=== PATIENT | female | born 1945 | race Caucasian/White ===

== ENCOUNTER → 2017-10-21 14:51 | Outpatient (CLI) | payer MEDICARE, SELFPAY ==
--- NOTE | 2017-10-21 14:51 | DI.REPORT_ITS ---
SYMPTOMS/DIAGNOSIS: RIGHT SHOULDER PAIN, BONY ABNORMALITY ANTERIORLY, M25.511 RIGHT SHOULDER: Multiple views. The glenohumeral joint appears well maintained. There are mild hypertrophic changes seen at the acromioclavicular joint. The clavicle appears mildly superiorly elevated relative to the acromion. There are degenerative changes seen at the greater tuberosity. The soft tissues are unremarkable. IMPRESSION: 1. Mild degenerative changes of the right shoulder. 2. Mild elevation of the clavicle relative to the acromion. This appears grossly unchanged when compared to examination from 10/09/12.
[2017-10-24 10:38] LABS: Lyme Ab w Rflx to Lyme Confirm Negative
[2017-10-26 00:07] LABS: Anaplasma phagocytophilum Negative (Negative); B. miyamotoi PCR Negative (Negative); Babesia divergens/MO-1 Negative (Negative); Babesia duncani Negative (Negative); Babesia microti Negative (Negative); Ehrlichia chaffeensis Negative (Negative); Ehrlichia ewingii/canis Negative (Negative); Ehrlichia muris eauclairensis Negative (Negative)
== END ==
PROVIDERS: PCP Nurse Practitioner Family; Visit Provider Nurse Practitioner Family
DX: M25.511 Pain in right shoulder (principal); M79.2 Neuralgia and neuritis, unspecified; M19.011 Primary osteoarthritis, right shoulder
CPT/HCPCS: 73030; 36415; 86618; 87798

== ENCOUNTER 2018-09-27 00:17 | Outpatient (CLI) | payer MEDICARE, SELFPAY | END 2018-09-27 00:37 | PROVIDERS: PCP Nurse Practitioner Family; Visit Provider Nurse Practitioner Family | DX: R69 Illness, unspecified (principal) ==

== ENCOUNTER 2018-10-03 00:38 | Outpatient (CLI) | payer MEDICARE, SELFPAY ==
--- NOTE | 2018-10-03 13:55 | DI.US_ITS ---
SYMPTOMS/DIAGNOSIS: RIGHT CAROTID BRUIT, R09.89, KNOWN THYROID NODULE CAROTID ULTRASOUND: Routine examination was performed. On the right, there is no evidence of hemodynamically significant velocity elevations. Minimal plaque is seen in the right carotid bulb. The right vertebral artery is antegrade. On the left, there is mild calcific plaque seen in the carotid bulb. No hemodynamically significant velocity elevations are present. The left vertebral artery is antegrade. IMPRESSION: No evidence of hemodynamically significant cervical carotid artery stenosis.
--- NOTE | 2018-10-03 13:55 | DI.MAMMO_ITS ---
SYMPTOM/DIAGNOSIS: SCREENING Z12.31 BILATERAL SCREENING MAMMOGRAMS: Mammograms were interpreted according to the usual protocol including computer analysis with CAD system, tomosynthesis and C view imaging. Comparison is made with exams from 2010 through 2012 from [facility] and 2014 through 2016 from [facility] in [place] The breasts are composed of scattered fibroglandular densities, breast density category B. No suspicious masses or suspicious microcalcifications are seen. There has been no significant change. IMPRESSION: Category 1, negative mammogram. Yearly screening mammography is recommended. Breast density category B. SA ASSESSMENT OF FINDINGS: Negative. Category 1. Patient will receive a letter notifying them of these results. BI-RADS category B. There are scattered areas of fibroglandular density.
--- NOTE | 2018-10-03 15:20 | DI.RAD_ITS ---
SYMPTOMS/DIAGNOSIS: POSTMENOPAUSAL, Z78.0 DEXA SCAN: Routine examination was performed. No priors for comparison. Evaluation of the lateral spine shows no compression deformities. Postsurgical changes are seen at L4-L5. Evaluation of the lumbar spine shows a total T score of -1.8 and a Z score of 0.3. This is consistent with osteopenia and an increased fracture risk. Evaluation of the left hip shows a total T score of -1.7 and a Z score of -0.1. This is consistent with osteopenia and an increased fracture risk. There is no evidence of osteoporosis. IMPRESSION: Osteopenia in the lumbar spine and left hip.
== END 2018-10-03 00:58 ==
PROVIDERS: PCP Nurse Practitioner Family; Visit Provider Nurse Practitioner Family
DX: Z12.31 Encounter for screening mammogram for malignant neoplasm of breast (principal); Z78.0 Asymptomatic menopausal state; R09.89 Other specified symptoms and signs involving the circulatory and respiratory systems
CPT/HCPCS: 77063; 77067; 77080; 93880

== ENCOUNTER 2018-11-02 08:44 | Outpatient (CLI) | payer MEDICARE, SELFPAY ==
[2018-11-02 10:58] LABS: Hemoglobin A1C 5.2 % (4.5-6.2)
[2018-11-02 12:06] LABS: ALT 19 U/L (12-78); AST 18 U/L (15-37); Alkaline Phosphatase 56 U/L (46-116); BUN 22 mg/dL (7-18); Bilirubin, Total 0.5 mg/dL (0.2-1.0); CO2 26.9 mmol/L (21.0-32.0); CREATININE 0.81 mg/dL (0.55-1.02); Calcium 8.8 mg/dL (8.5-10.1); Calculated LDL 149 mg/dL; Cholesterol 242 mg/dL (50-200); Glucose 93 mg/dL (70-100); HDL Cholesterol 60 mg/dL (40-60); TSH 0.37 uIU/mL (0.36-3.74); Triglyceride 168 mg/dL (30-150)
[2018-11-02 12:14] LABS: Anion Gap 9.1 mmol/L (3-11); Chloride 105 mmol/L (98-107); Potassium 4.2 mmol/L (3.5-5.1); Sodium 141 mmol/L (136-145)
[2018-11-02 12:24] LABS: Vitamin D 25 Total 36.1 ng/ml (30-100)
[2018-11-02 20:55] LABS: T3,Free 3.2 pg/ml (2.8-5.3)
== END 2018-11-02 09:04 ==
PROVIDERS: PCP Nurse Practitioner Family; Visit Provider Nurse Practitioner Family
DX: E04.2 Nontoxic multinodular goiter (principal); E78.5 Hyperlipidemia, unspecified; M85.80 Other specified disorders of bone density and structure, unspecified site
CPT/HCPCS: 36415; 80053; 80061; 82306; 83721; 83036; 84439; 84443; 84481

== ENCOUNTER 2019-11-12 21:13 | Outpatient (REF) | payer MEDICARE, SELFPAY | END 2019-11-12 21:33 | LOC: LBN 21:13 | PROVIDERS: PCP Nurse Practitioner Family; Visit Provider Nurse Practitioner Family | DX: N39.0 Urinary tract infection, site not specified (principal) | CPT/HCPCS: 87077; 87086; 87186 ==

== ENCOUNTER 2020-10-13 14:56 | Outpatient (REF) | payer MEDICARE, SELFPAY | END 2020-10-13 14:57 | disposition home or self-care (01) | LOC: LBN 14:56 | PROVIDERS: PCP Nurse Practitioner Family; Visit Provider Nurse Practitioner Family | DX: N76.0 Acute vaginitis (principal) | CPT/HCPCS: 87480; 87510; 87660 ==

== ENCOUNTER 2020-12-16 15:01 | Outpatient (REF) | payer MEDICARE, SELFPAY ==
[2020-12-16 12:51] LABS: Bilirubin Negative (Negative); Blood Large (Negative); Clarity Cloudy (Clear); Glucose Negative (Negative); Ketones Trace mg/dL (Negative); Leukocyte Esterase Moderate (Negative); Nitrite Negative (Negative); Specific Gravity >= 1.030 (1.005-1.025); Urobilinogen 0.2 EU/dL (Up TO 0.2); pH 5.5 (5-8)
[2020-12-16 12:58] LABS: Epithelial Cells Rare HPF (Negative); RBC 20-50 HPF (0-2); WBC 20-50 HPF (0-5)
[2020-12-16 12:59] LABS: Bacteria Few HPF (Negative); C & S Indicated? Yes; Casts Negative LPF (Negative); Crystals Negative HPF (Negative); Mucus Negative (Negative)
== END 2020-12-16 15:02 | disposition home or self-care (01) ==
LOC: LBN 15:01
PROVIDERS: PCP Nurse Practitioner Family; Visit Provider Physician Assistant
DX: R31.9 Hematuria, unspecified (principal); R39.15 Urgency of urination; R35.0 Frequency of micturition
CPT/HCPCS: 87077; 81003; 81015; 87086; 87186

== ENCOUNTER 2020-12-17 19:44 | Outpatient (REF) | payer MEDICARE, SELFPAY ==
[2020-12-19 12:10] LABS: COVID-19 RT-PCR UVMMC Result Negative (Negative)
== END 2020-12-17 19:45 | disposition home or self-care (01) ==
LOC: LBN 19:44
PROVIDERS: PCP Nurse Practitioner Family; Visit Provider Nurse Practitioner Family
DX: Z20.822 Contact with and (suspected) exposure to COVID-19 (principal)
CPT/HCPCS: U0003; U0005

== ENCOUNTER → 2021-10-13 13:51 | Outpatient (BNVA) | payer MEDICARE, SELFPAY | PROVIDERS: PCP Nurse Practitioner Family; Referring Provider Nurse Practitioner Family; Visit Provider Nurse Practitioner Adult Health | DX: M79.641 Pain in right hand (principal); M79.642 Pain in left hand | CPT/HCPCS: 95909; 99204 ==

== ENCOUNTER → 2021-11-13 09:26 | Outpatient (BNVA) | payer MEDICARE, SELFPAY | PROVIDERS: PCP Nurse Practitioner Family; Referring Provider Nurse Practitioner Family; Visit Provider Student in an Organized Health Care Education/Training Program | DX: M79.641 Pain in right hand (principal); M79.642 Pain in left hand; M18.0 Bilateral primary osteoarthritis of first carpometacarpal joints | CPT/HCPCS: 99213 ==

== ENCOUNTER 2022-09-20 15:37 | Outpatient (CLI) | payer MEDICARE, SELFPAY ==
--- NOTE | 2022-09-20 15:10 | DI.RAD_ITS ---
Exam(s) XR HIP PELVIS ADULT BL EXAM: XR HIP PELVIS ADULT BL CLINICAL HISTORY: BILAT HIP OA, M16.11, M16.12. TECHNIQUE: 2D digital imaging was performed. COMPARISON: No exams were available for comparison FINDINGS: 3 views No evidence of pelvic nor hip fracture. Fusion device noted in the lower lumbar spine. There are significant degenerative changes in both hips. Marginal osteophytes. Mild joint space tana rowing bilaterally. No significant osseous lesions. There is a calcification measuring 1.0 x 0.8 cm it adjacent to the right femoral neck medial aspect. SI joints unremarkable. IMPRESSION: Degenerative hip joint findings as above. DATA REPOSITORY: RADIATION DOSE DELIVERED:
== END 2022-09-20 15:57 ==
PROVIDERS: PCP Nurse Practitioner Family
DX: M16.0 Bilateral primary osteoarthritis of hip (principal)
CPT/HCPCS: 73521

== ENCOUNTER 2022-09-22 15:06 | Outpatient (CLI) | payer MEDICARE, SELFPAY ==
--- NOTE | 2022-09-22 11:15 | DI.RAD_ITS ---
Exam(s) XR CHEST 2V PA LATERAL EXAM: XR CHEST 2V PA LATERAL CLINICAL HISTORY: Cough fatigue, R05.9. TECHNIQUE: 2D digital imaging was performed. COMPARISON: CR RIGHT SHOULDER COMPLETE from 10/21/2017 FINDINGS: 2 views: Heart size is normal. The mediastinum is not widened. Lungs are clear. No infiltrates nor pleural effusions. IMPRESSION: No acute pulmonary findings. DATA REPOSITORY: RADIATION DOSE DELIVERED:
== END 2022-09-22 15:26 ==
LOC: DI 15:14
PROVIDERS: PCP Nurse Practitioner Family; Visit Provider Physician Assistant Medical
DX: R05.8 Other specified cough (principal); R53.83 Other fatigue
CPT/HCPCS: 71046

== ENCOUNTER 2022-09-23 03:02 | Outpatient (CLI) | payer MEDICARE, SELFPAY ==
[2022-09-23 12:20] LABS: Abs Immature Grans 0.02 10^3/uL (0.0-0.06); Absolute Basophil Count 0.05 10^3/uL (0.0-0.2); Absolute Eosinophil Count 0.15 10^3/uL (0.0-0.7); Absolute Lymphocyte Count 1.89 10^3/uL (1.2-3.4); Absolute Monocyte Count 0.34 10^3/uL (0.1-0.8); Basophils % 1.2; Eosinophils % 3.5; HCT 40.4 % (36.0-46.0); HGB 14.2 g/dL (11.2-15.7); Immature Grans % 0.5; MCH 32.6 pg (27.0-33.0); MCHC 35.1 % (32.0-36.0); MCV 93 fL (80-95); MPV 10.1 fL (8.0-11.0); Monocytes % 7.9; Neutrophils % 42.9; Platelet Count 261 10^3/uL (130-400); RBC 4.36 10^6/uL (3.93-5.22); RDW 12.5 % (11.7-14.6); RDW-SD 40.9 fL
[2022-09-23 12:24] LABS: Absolute Neutrophil Count 1.84 10^3/uL (1.2-6.7)
[2022-09-23 12:27] LABS: ESR 5 mm/hr (0-30)
[2022-09-23 12:38] LABS: ALT 18 U/L (14-59); AST 21 U/L (15-37); Alkaline Phosphatase 62 U/L (46-116); Anion Gap 7.6 mmol/L (3-11); BUN 22 mg/dL (7-18); Bilirubin, Total 0.8 mg/dL (0.2-1.0); CO2 29.4 mmol/L (21.0-32.0); CREATININE 0.9 mg/dL (0.55-1.02); Calcium 9.6 mg/dL (8.5-10.1); Chloride 105 mmol/L (98-107); Estimated GFR 66.67 (mL/min/1.73m2); Glucose 82 mg/dL (74-106); Potassium 3.8 mmol/L (3.5-5.1); Sodium 142 mmol/L (136-145); Total Protein 7.5 g/dL (6.4-8.2)
[2022-09-23 12:40] LABS: Calculated LDL 143 mg/dL (<100); Cholesterol 238 mg/dL (<200); HDL Cholesterol 68 mg/dL (40-60); Triglyceride 139 mg/dL (<150)
[2022-09-23 21:52] LABS: CRP, High Sensitivity 0.97 mg/L (See Note); Rheumatoid Factor <8.6 IU/mL (<12.0)
== END 2022-09-23 03:03 | disposition home or self-care (01) ==
LOC: LOS 03:03
PROVIDERS: Physician Assistant Medical; PCP Nurse Practitioner Family; Visit Provider Nurse Practitioner Family
DX: R53.83 Other fatigue (principal); E78.5 Hyperlipidemia, unspecified; R05.8 Other specified cough; M13.0 Polyarthritis, unspecified
CPT/HCPCS: 36415; 80053; 80061; 85652; 86141; 85025; 86431

== ENCOUNTER → 2023-10-12 01:10 | Outpatient (CLI) | payer MEDICARE, SELFPAY ==
--- NOTE | 2023-10-12 13:56 | DI.RAD_ITS ---
Exam(s) XR FOOT LT COMPLETE EXAM: XR FOOT LT COMPLETE CLINICAL HISTORY: Left foot pain, M79.672. TECHNIQUE: 2D digital imaging was performed. Three views. COMPARISON: No exams were available for comparison FINDINGS: BONES: No acute fracture is present. No bony destructive lesion is seen. Two accessory navicular raj marcia. Ossicle noted adjacent to cuboid. Enthesophyte at Achilles insertion. JOINTS: No dislocation present. Minimal degenerative changes 1st MTP joint and talonavicular joint. SOFT TISSUE: Normal. IMPRESSION: Mild degenerative changes and calcaneal enthesophyte. DATA REPOSITORY: RADIATION DOSE DELIVERED:
== END ==
PROVIDERS: PCP Nurse Practitioner Family; Visit Provider Podiatrist
DX: M79.672 Pain in left foot (principal); M77.32 Calcaneal spur, left foot; M19.072 Primary osteoarthritis, left ankle and foot
CPT/HCPCS: 73630

== ENCOUNTER 2023-10-25 02:36 | Outpatient (CLI) | payer MEDICARE, SELFPAY ==
[2023-10-25 15:10] LABS: HCT 41.4 % (36.0-46.0); HGB 13.4 g/dL (11.2-15.7); MCH 30.2 pg (27.0-33.0); MCHC 32.4 % (32.0-36.0); MCV 93 fL (80-95); MPV 9.7 fL (8.0-11.0); Platelet Count 246 10^3/uL (130-400); RBC 4.44 10^6/uL (3.93-5.22); RDW 12.6 % (11.7-14.6); RDW-SD 43.3 fL; WBC 5.51 10^3/uL (4.4-10.8)
[2023-10-25 17:00] LABS: ALT 22 U/L (14-59); AST 22 U/L (15-37); Albumin 3.7 g/dL (3.4-5.0); Alkaline Phosphatase 50 U/L (46-116); Anion Gap 7.8 mmol/L (3-11); BUN 22 mg/dL (7-18); Bilirubin, Total 0.37 mg/dL (0.2-1.0); CO2 28.2 mmol/L (21.0-32.0); CREATININE 0.8 mg/dL (0.55-1.02); Calcium 9.5 mg/dL (8.5-10.1); Chloride 105 mmol/L (98-107); Estimated GFR 76.31 (mL/min/1.73m2); Glucose 118 mg/dL (74-106); Potassium 4.2 mmol/L (3.5-5.1); Sodium 141 mmol/L (136-145)
== END 2023-10-25 02:37 | disposition home or self-care (01) ==
LOC: LBO 02:36
PROVIDERS: PCP Nurse Practitioner Family; Visit Provider Nurse Practitioner Family
DX: Z01.818 Encounter for other preprocedural examination (principal)
CPT/HCPCS: 36415; 80053; 85027

== ENCOUNTER 2023-11-07 11:20 | Outpatient (CLI) | payer MEDICARE, SELFPAY ==
--- NOTE | 2023-11-07 11:15 | RT.EKG_ITS ---
APPROVED REPORT Exam: Resting ECG Reason for Exam: pre-op examination Patient Location: O HR:63 bpm ECG Measurements Heart Rate 63 AXIS RI 180 P 55 QRSd 110 QRS 45 QT 399 T 78 QTc 409 Conclusion Sinus rhythm...normal P axis, V-rate 50- 99 IVCD Probable left ventricular hypertrophy...multiple LVH criteria
== END 2023-11-07 11:21 | disposition home or self-care (01) ==
LOC: DI.CM 11:21
PROVIDERS: PCP Nurse Practitioner Family; Visit Provider Nurse Practitioner Family
DX: Z01.818 Encounter for other preprocedural examination (principal)
CPT/HCPCS: 93010

== ENCOUNTER → 2023-11-07 14:16 | Outpatient (BNVA) | payer MEDICARE, SELFPAY | PROVIDERS: PCP Nurse Practitioner Family; Referring Provider Nurse Practitioner Family; Visit Provider Podiatrist | DX: M79.672 Pain in left foot (principal); M65.28 Calcific tendinitis, other site; M67.02 Short Achilles tendon (acquired), left ankle; M72.2 Plantar fascial fibromatosis; Q66.71 Congenital pes cavus, right foot; Q66.72 Congenital pes cavus, left foot | CPT/HCPCS: 36415; 80053; 99213; 85025 ==

== ENCOUNTER 2023-11-07 16:58 | Outpatient (CLI) | payer MEDICARE, SELFPAY ==
[2023-11-07 15:00] LABS: Abs Immature Grans 0.01 10^3/uL (0.0-0.06); Absolute Basophil Count 0.04 10^3/uL (0.0-0.2); Absolute Eosinophil Count 0.06 10^3/uL (0.0-0.7); Absolute Lymphocyte Count 1.37 10^3/uL (1.2-3.4); Absolute Monocyte Count 0.43 10^3/uL (0.1-0.8); Absolute Neutrophil Count 3.96 10^3/uL (1.2-6.7); Basophils % 0.7 %; HCT 43.1 % (36.0-46.0); HGB 13.9 g/dL (11.2-15.7); Immature Grans % 0.2 %; Lymphocytes % 23.3 %; MCH 29.9 pg (27.0-33.0); MCHC 32.3 % (32.0-36.0); MCV 93 fL (80-95); MPV 9.8 fL (8.0-11.0); Monocytes % 7.3 %; Neutrophils % 67.5 %; Platelet Count 254 10^3/uL (130-400); RBC 4.65 10^6/uL (3.93-5.22); RDW 12.4 % (11.7-14.6); RDW-SD 42.5 fL; WBC 5.87 10^3/uL (4.4-10.8)
[2023-11-07 15:31] LABS: ALT 18 U/L (14-59); AST 22 U/L (15-37); Albumin 3.8 g/dL (3.4-5.0); Alkaline Phosphatase 51 U/L (46-116); Anion Gap 5.4 mmol/L (3-11); BUN 24 mg/dL (7-18); Bilirubin, Total 0.45 mg/dL (0.2-1.0); CO2 29.6 mmol/L (21.0-32.0); CREATININE 0.8 mg/dL (0.55-1.02); Calcium 9.5 mg/dL (8.5-10.1); Chloride 105 mmol/L (98-107); Estimated GFR 76.31 (mL/min/1.73m2); Glucose 97 mg/dL (74-106); Potassium 4.3 mmol/L (3.5-5.1); Sodium 140 mmol/L (136-145); Total Protein 7.1 g/dL (6.4-8.2)
== END 2023-11-07 16:59 | disposition home or self-care (01) ==
LOC: LBO 16:59
PROVIDERS: PCP Nurse Practitioner Family; Visit Provider Nurse Practitioner Family
DX: Z01.818 Encounter for other preprocedural examination (principal)
CPT/HCPCS: 36415; 80053; 85025

== ENCOUNTER 2023-11-15 02:18 | Outpatient (CLI) | payer MEDICARE, SELFPAY ==
--- NOTE | 2023-11-15 08:30 | DI.US_ITS ---
Exam(s) US AAA SCREENING EXAM: US AAA SCREENING CLINICAL HISTORY: AAA screening,family h/o aaa,z82.49 COMPARISON: No exams were available for comparison FINDINGS: Abdominal Aorta: Proximal: 2.3 x 2.4 cm Mid: 1.7 x 1.7 cm Distal: 1.7 x 1.6 cm Iliac's: Right: 1.1 x 1.1 cm Left: 1.1 x 1.1 cm Mild atherosclerotic disease is present. IMPRESSION: No evidence of abdominal aortic aneurysm. DATA REPOSITORY:
== END 2023-11-15 02:38 ==
LOC: DI 02:18
PROVIDERS: PCP Nurse Practitioner Family; Visit Provider Nurse Practitioner Family
DX: Z82.49 Family history of ischemic heart disease and other diseases of the circulatory system (principal); Z13.6 Encounter for screening for cardiovascular disorders
CPT/HCPCS: 76706

== ENCOUNTER 2024-10-15 15:38 | Outpatient (CLI) | payer MEDICARE, SELFPAY ==
--- NOTE | 2024-10-15 | DI.RAD_ITS ---
Exam(s) XR HIP LT COMPLETE AP PELVIS EXAM: XR HIP LT COMPLETE AP PELVIS CLINICAL HISTORY: PAIN LT HIP JOINT, M25.552. TECHNIQUE: 2D digital imaging was performed. COMPARISON: No exams were available for comparison FINDINGS: Two views: No evidence of acute pelvic nor hip fracture. Right hip prosthesis noted as is surgical hardware at the L4-5 level the lower lumbar spine. With regards to the left hip, there is no evidence of fracture. There is mild- moderate relatively uniform joint space narrowing. No osteophytes. IMPRESSION: Moderate degenerative changes in the left hip. Right hip prosthesis. DATA REPOSITORY: RADIATION DOSE DELIVERED:
== END 2024-10-15 15:58 ==
PROVIDERS: PCP Orthopaedic Surgery; Visit Provider Orthopaedic Surgery
DX: M16.0 Bilateral primary osteoarthritis of hip (principal)
CPT/HCPCS: 73502